=== PATIENT | male | born 1950 | race Caucasian/White ===

== ENCOUNTER → 2016-11-09 | Outpatient (CLI) | payer OTHER ==
[~2016-11-09] MED LIST: ASPIRIN EC81 M1 PO; ASPIRIN81 MG PO; AVALIDE 300-251 TAB PO; AVAPRO300 M1 PO; COUMADIN PO; EFFIENT10 MG PO; FISH OIL 1,0001 CAP PO; FUROSEMIDE40 MG PO; GLUCOTROL PO; HCTZ PO; IBUPROFEN PO; IBUPROFEN800 MG PO; IRBESARTAN75 MG PO; IRON PO; JANU; JANUMET 50-1,1 UDTAB PO; JANUMET 50-501 UDTAB PO; JANUMET XR 50-1 EAC1 PO; JANUVIA50 MG PO; K-DUR20 ME1 PO; METFORMIN PO; MOBIC PO; MOBIC15 MG PO; NITROGLYGERIN0.4 MG SL; NORCO 5/325 TAB1 TAB PO; PRADAXA150 MG PO; PROTONIX PO; SIMVASTATIN40 MG PO; TOPROL XL PO; TOUJEO SOL300 UNIT/1 SUBQ; TRICOR PO; VASCEPA1 GM PO; ZOCOR PO
--- NOTE | ~2016-11-09 | CR63 ---
[facility] A Service of [facility] & [facility] RADIOLOGY TEXT RESULTS PATIENT: JOHANNA SR LOCATION: [facility] : 54 UNIT #: [id number] AGE: [address]: Maylin Lambert MD SEX: M ORDER DR: [id number] [facility] [address] [place], [place] [address] [id number] O MR#: [id number] Acc #: [id number] NAME: JOHANNA SR : 1950 SEX: M STUDY DATE/TIME: 11/09/2016 10:55 UNIT: [facility] ROOM: STUDY DESCRIPTION: CR Chest 2 View Attending Physician: Maylin Lambert M.D. Referring Physician: Maylin Lambert M.D. Ordering Physician: Maylin Lambert M.D. Primary Care Physician: Maylin Lambert M.D. MEDICAL IMAGING REPORT This report is preliminary unless electronic signature is present EXAM Chest, 11/09/2016, [facility]. HISTORY 66-year-old male patient with cough, hemoptysis on and off past 2 weeks. COMPARISON Most recent portable chest 05/10/2016 with PE protocol chest CT same date. Refer to the prior CT report. FINDINGS PA and lateral chest views show mild cardiomegaly and mild aortic ectasia. Interstitial markings are prominent in both lungs. There is an approximate 3 cm rounded parenchymal density projecting in the left upper lobe. This is suspicious for a mass and malignant etiology is of primary concern. I see no additional nodules at this time and no airspace infiltrate. IMPRESSION Suspicious approximate 3 cm left upper lobe mass. Recommend correlation with PET/CT. Stable chronic interstitial fibrosis. Stable mild cardiac enlargement. Dictated by... Cm He M.D. THIS IS AN ELECTRONICALLY VERIFIED REPORT Cm He M.D. at 11/12/2016 8:03 AM YONY/kris TD: 11/09/2016 16:44 [facility] A Service of [facility] & [facility] RADIOLOGY TEXT RESULTS PATIENT: JOHANNA SR LOCATION: [facility] #: [id number] : 54 UNIT #: [id number] AGE: [address]: Maylin Lambert MD SEX: M ORDER DR: JOB #: [id number] MEDICAL IMAGING REPORT COPY
== END | disposition home or self-care (01) ==
LOC: CRAD 10:43
DX: R04.2 Hemoptysis (principal); R05 Cough; R91.8 Other nonspecific abnormal finding of lung field
CPT/HCPCS: 71020